=== PATIENT | female | born 1940 | race Caucasian/White ===

== ENCOUNTER 2019-02-13 17:38 | Inpatient (IN) | payer MEDICARE, BC ==
[2019-02-13 21:50] VITALS: BP 127/87
[2019-02-13] MEDS ORDERED: Magnesium Hydroxide (MOM) 30 mL UDC PO PRN (21:59)
[2019-02-14] MEDS: Verapamil HCl SR 120 mg Tab PO SCH ×2 (08:30→09:35)
--- NOTE | 2019-02-14 11:00 | Psychiatric Evaluation ---
DATE OF SERVICE: PSYCHIATRIC INITIAL EVALUATION AND MENTAL STATUS EXAMINATION PATIENT'S AGE: 78. SEX: Female. PHYSICIAN: Said Aspen Sharma M.D., M.P.H.. CHIEF COMPLAINT: "I don't remember." HISTORY OF PRESENT ILLNESS: The patient is a 78-year-old female who was evaluated and transferred from [facility] because of agitation and aggressive behavior towards her . The patient also has been aggressive towards other family members. The patient also has been having difficulty with redirections. Chart reviewed and the patient interviewed and discussed the patient's condition with the staff. The patient is confused and she is unable to answer any of my questions coherently. She also has been restless and getting more agitated with asking her questions as well as almost tearful at times. The patient said that she has been living with her . She cannot remember how many children she had and her answer was "maybe 2 or 3." She also has been disheveled. PAST PSYCHIATRIC HISTORY: The patient has history of dementia. The patient is currently taking Seroquel in a dose of 50 mg at bedtime. PAST MEDICAL HISTORY: The patient has history of hypertension as well as hip pain. The patient also has history of cataract. SOCIAL HISTORY: The patient is and lives with her . The patient denies any alcohol or street drug use or smoking cigarettes. She does not know how many children she has. ALLERGIES: No known allergies. MENTAL STATUS EXAMINATION: The patient appears her stated age. Anxious. Sad affect. In a depressed mood. Easily irritable and agitated. The patient denies any auditory or visual hallucinations, but seems to be paranoid and delusional and actively responding to stimuli. The patient denies any suicidal or homicidal ideations. The patient is alert, but disoriented to time, place, person or situation. Impaired immediate, recent and remote memories. Poor insight and poor judgment. ASSESSMENT: PRIMARY DIAGNOSIS: Psychosis, unspecified. SECONDARY DIAGNOSIS: Dementia, [id number], with psychotic features and behavioral disturbances. TREATMENT PLAN: We will monitor the patient's behavior and condition closely. We will also monitor psychotropic medications. Also, we will increase Seroquel and we will decrease Prozac. Also, try to get more information from family. ESTIMATED LENGTH OF STAY: 5-7 days. PATIENT'S STRENGTHS AND WEAKNESSES: The patient has supportive family. She seems to be in relatively fair health. Weakness is her ineffective coping and poor impulse control and her forgetfulness. AFTER DISCHARGE PLANS: The patient might need placement and outpatient treatment and followup will continue as an outpatient. CRITERIA FOR DISCHARGE: The patient will not be agitated or psychotic and will stabilize psychotropic medications and will establish outpatient treatment plans. [facility]# [id number]
--- NOTE | 2019-02-14 17:27 | History & Physical ---
ADMIT DATE: 02/13/2019 CHIEF COMPLAINT: Transfer from [facility] for agitation and aggressive behavior. HISTORY OF PRESENT ILLNESS: This is a 78-year-old female transferred from [facility] who is medically cleared, who has a 1-day history of aggressive behavior and agitation towards her . PAST MEDICAL HISTORY: Dementia, psychosis. PAST SURGICAL HISTORY: Unknown. ALLERGIES: No known drug allergies. HOME MEDICATIONS: See medication list. REVIEW OF SYSTEMS: GENERAL: Denies any fever or chills. CARDIOVASCULAR: Denies chest pain. RESPIRATORY: Denies shortness of breath. GASTROINTESTINAL: Denies nausea, vomiting, abdominal pain. GENITOURINARY: Denies increased frequency. NEUROLOGIC: No seizures or syncope. All systems reviewed and negative. PHYSICAL EXAMINATION: EXTREMITIES: The patient is well-developed, well-nourished, no apparent distress. VITAL SIGNS: Temperature 97.6, heart rate 55, blood pressure 140/77, respirations 20, O2 96%. HEENT: Head; normocephalic, atraumatic. NECK: Supple. No mass. LUNGS: Clear bilaterally. HEART: Regular rate and rhythm. ABDOMEN: Soft, nontender. ASSESSMENT: Agitation, aggressive behavior, dementia. PLAN: We will continue the patient's home medications. Fall precautions will be initiated. We will check the patient's hemoglobin A1c and lipid profile. We will continue to monitor this patient. [facility]# [id number]
--- NOTE | 2019-02-15 07:38 | Progress Notes ---
DATE: SUBJECTIVE: Chart reviewed and the patient interviewed. Also discussed the patient's condition with the staff and reviewed records and labs. The patient is still confused. The patient also is still unable to carry on coherent conversation and she has disorganized thoughts. She also was "wandering around the unit and when I asked her about what she is doing, looking for my and I will wait for him here." She is still very confused and forgetful, but easy to redirect her, but she needs constant redirections. Gait is steady and vital signs are stable. Labs were within normal. ASSESSMENT: The patient is still confused and needs constant redirections. TREATMENT PLAN: We will monitor the patient's behavior and condition closely. Also, we will continue to work on her confusion and also continue to adjust psychotropic medications. Seroquel started yesterday in a dose of 25 mg 3 times a day with no side effects. We will continue same dose and we will continue to follow up. JOB# [id number]
[2019-02-15] MEDS: Verapamil HCl SR 120 mg Tab PO SCH (08:12)
--- NOTE | 2019-02-15 15:57 | Internal Medicine Prog Note ---
Internal Medicine Subjective - Subjective Service Date: 02/15/19 Patient seen and examined:: with staff Patient is:: awake, verbal, confused Patient Complaints of:: other (Patient is forgetful.) Per staff patient has:: no adverse event, no episodes of fall Internal Medicine Objective - Physical Exam Vitals and I&O: Vital Signs Temp 98.0 F 02/15/19 04:50 Pulse 90 02/15/19 08:12 Resp 18 02/15/19 04:50 BP 108/68 02/15/19 08:12 Pulse Ox 96 02/15/19 04:50 Intake & Output 02/14/19 02/15/19 02/15/19 18:59 06:59 18:59 Intake Total 800 480 Balance 800 480 Intake: Oral 800 480 Other: # Voids 2 # Bowel Movements 1 Active Medications: Current Medications Acetaminophen (Tylenol) 650 mg PO Q4HR PRN PRN Reason: Mild Pain / Temp above 100 Stop: 04/14/19 21:58 Fluoxetine HCl (Prozac) 20 mg PO DAILY [facility]; Protocol Stop: 04/15/19 08:59 Last Admin: 02/15/19 08:11 Dose: 20 mg Lorazepam (Ativan) 0.5 mg PO Q4HR PRN; Protocol PRN Reason: Agitation Stop: 03/15/19 21:58 Last Admin: 02/15/19 13:30 Dose: 0.5 mg Magnesium Hydroxide (Milk Of Magnesia) 30 ml PO HS PRN PRN Reason: Constipation Memantine (Namenda) 10 mg PO BID [facility] Stop: 04/15/19 08:59 Last Admin: 02/15/19 08:11 Dose: 10 mg Quetiapine Fumarate (Seroquel) 25 mg PO TID [facility]; Protocol Stop: 04/15/19 08:59 Last Admin: 02/15/19 13:30 Dose: 25 mg Verapamil HCl (Calan Sr) 240 mg PO DAILY [facility] Stop: 04/15/19 08:59 Last Admin: 02/15/19 08:12 Dose: 240 mg Zolpidem Tartrate (Ambien) 5 mg PO HS PRN PRN Reason: Insomnia Stop: 04/14/19 21:58 Last Admin: 02/14/19 20:37 Dose: 5 mg Physical Exam: Patient has disorganized thoughts, very confused, increased memory loss. General: demented HEENT: NC/AT, PERRLA Neck: Supple Lungs: CTAB Cardiovascular: RRR, Normal S1 Abdomen: soft, non-tender Extremities: clear Neurological: no change Internal Medicine Assmt/Plan - Assessment Assessment: Agitation. Aggressive behavior. History of Psychosis. History of Dementia. - Plan Plan: Continuation of care. Monitor Vitals and Labs. Continue present meds as directed. Monitor Diet/Nutritional support. Safety precaution. Supportive care. Continue collaborating with consulting specialists, case management and nursing team. Will Monitor patient and continue present care management. Nutritional Asmnt/Malnutr-PDOC - Dietary Evaluation Malnutrition Findings (Please click <Entered> for more info): see orders.
[2019-02-16] MEDS: Verapamil HCl SR 120 mg Tab PO SCH (08:46)
--- NOTE | 2019-02-16 10:25 | Progress Notes ---
DATE: SUBJECTIVE: Chart reviewed and the patient interviewed. Also discussed the patient's condition with the staff and reviewed records and labs. The patient continued to be confused and she is still actively hallucinating and actively responding to stimuli. The patient is trying to grasp objects from the area that was not visible and she seems to be having visual hallucinations. The patient also is still restless and pacing up and down the unit in a confused state. She also is still looking around the room for objects that is not there. On the other hand, it seems that the patient's appetite is slightly improved. ASSESSMENT: The patient is still confused and is still hallucinating and needs close monitoring. TREATMENT PLAN: We will continue to monitor her condition closely. Also, the patient continues to take Seroquel in a dose of 25 mg 3 times a day. We will continue same dose and we will continue working on her confusion and follow up closely. [facility]# [id number]
--- NOTE | 2019-02-16 16:23 | Internal Medicine Prog Note ---
Internal Medicine Subjective - Subjective Service Date: 02/16/19 Patient is:: awake, verbal, confused Patient Complaints of:: other (Patient is forgetful.) Per staff patient has:: no adverse event, no episodes of fall Internal Medicine Objective - Physical Exam Vitals and I&O: Vital Signs Temp 97.3 F 02/16/19 06:36 Pulse 102 02/16/19 08:46 Resp 20 02/16/19 06:36 BP 113/64 02/16/19 08:46 Pulse Ox 97 02/16/19 06:36 Intake & Output 02/15/19 02/16/19 02/16/19 18:59 06:59 18:59 Intake Total 900 120 Balance 900 120 Intake: Oral 900 120 Other: # Voids 3 2 # Bowel Movements 1 Active Medications: Current Medications Acetaminophen (Tylenol) 650 mg PO Q4HR PRN PRN Reason: Mild Pain / Temp above 100 Stop: 04/14/19 21:58 Fluoxetine HCl (Prozac) 20 mg PO DAILY [facility]; Protocol Stop: 04/15/19 08:59 Last Admin: 02/16/19 08:43 Dose: 20 mg Lorazepam (Ativan) 0.5 mg PO Q4HR PRN; Protocol PRN Reason: Agitation Stop: 03/15/19 21:58 Last Admin: 02/15/19 16:24 Dose: 0.5 mg Magnesium Hydroxide (Milk Of Magnesia) 30 ml PO HS PRN PRN Reason: Constipation Memantine (Namenda) 10 mg PO BID [facility] Stop: 04/15/19 08:59 Last Admin: 02/16/19 08:43 Dose: 10 mg Quetiapine Fumarate (Seroquel) 25 mg PO TID [facility]; Protocol Stop: 04/15/19 08:59 Last Admin: 02/16/19 13:35 Dose: 25 mg Verapamil HCl (Calan Sr) 240 mg PO DAILY [facility] Stop: 04/15/19 08:59 Last Admin: 02/16/19 08:46 Dose: 240 mg Zolpidem Tartrate (Ambien) 5 mg PO HS PRN PRN Reason: Insomnia Stop: 04/14/19 21:58 Last Admin: 02/14/19 20:37 Dose: 5 mg General: demented HEENT: NC/AT, PERRLA Neck: Supple Lungs: CTAB Cardiovascular: RRR, Normal S1 Abdomen: soft, non-tender Extremities: clear Neurological: no change Internal Medicine Assmt/Plan - Assessment Assessment: Agitation. Aggressive behavior. History of Psychosis. History of Dementia. - Plan Plan: Continuation of care. Monitor Vitals and Labs. Continue present meds as directed. Monitor Diet/Nutritional support. Safety precaution. Supportive care. Continue collaborating with consulting specialists, case management and nursing team. Will Monitor patient and continue present care management.
[2019-02-17] MEDS: Verapamil HCl SR 120 mg Tab PO SCH (09:12)
--- NOTE | 2019-02-17 14:15 | Internal Medicine Prog Note ---
Internal Medicine Subjective - Subjective Service Date: 02/17/19 Patient seen and examined:: with staff Patient is:: awake, verbal, confused Patient Complaints of:: other (Patient is forgetful.) Per staff patient has:: no adverse event, no episodes of fall Internal Medicine Objective - Physical Exam Vitals and I&O: Vital Signs Temp 97.9 F 02/17/19 06:50 Pulse 98 02/17/19 06:50 Resp 18 02/17/19 06:50 BP 103/68 02/17/19 06:50 Pulse Ox 97 02/17/19 06:50 Intake & Output 02/16/19 02/17/19 02/17/19 18:59 06:59 18:59 Intake Total 240 Balance 240 Intake: Oral 240 Other: # Voids 1 Active Medications: Current Medications Acetaminophen (Tylenol) 650 mg PO Q4HR PRN PRN Reason: Mild Pain / Temp above 100 Stop: 04/14/19 21:58 Fluoxetine HCl (Prozac) 10 mg PO DAILY [facility]; Protocol Stop: 04/18/19 08:59 Last Admin: 02/17/19 10:14 Dose: 10 mg Lorazepam (Ativan) 0.5 mg PO Q4HR PRN; Protocol PRN Reason: Agitation Stop: 03/15/19 21:58 Last Admin: 02/15/19 16:24 Dose: 0.5 mg Magnesium Hydroxide (Milk Of Magnesia) 30 ml PO HS PRN PRN Reason: Constipation Memantine (Namenda) 10 mg PO BID [facility] Stop: 04/15/19 08:59 Last Admin: 02/17/19 09:14 Dose: 10 mg Quetiapine Fumarate (Seroquel) 25 mg PO TID [facility]; Protocol Stop: 04/15/19 08:59 Last Admin: 02/17/19 09:12 Dose: 25 mg Verapamil HCl (Calan Sr) 240 mg PO DAILY [facility] Stop: 04/15/19 08:59 Last Admin: 02/17/19 09:12 Dose: Not Given Zolpidem Tartrate (Ambien) 5 mg PO HS PRN PRN Reason: Insomnia Stop: 04/14/19 21:58 Last Admin: 02/14/19 20:37 Dose: 5 mg Physical Exam: Patient is easily agitated, remains very confused. General: demented HEENT: NC/AT, PERRLA Neck: Supple Lungs: CTAB Cardiovascular: RRR, Normal S1 Abdomen: soft, non-tender Extremities: clear Neurological: no change Internal Medicine Assmt/Plan - Assessment Assessment: Agitation. Aggressive behavior. History of Psychosis. History of Dementia. - Plan Plan: Continuation of care. Monitor Vitals and Labs. Continue present meds as directed. Monitor Diet/Nutritional support. Safety precaution. Supportive care. Continue collaborating with consulting specialists, case management and nursing team. Will Monitor patient and continue present care management. Nutritional Asmnt/Malnutr-PDOC - Dietary Evaluation Malnutrition Findings (Please click <Entered> for more info): Patient is awake, easily agitated and irritable.
--- NOTE | 2019-02-18 01:07 | Progress Notes ---
DATE: 02/17/2019 SUBJECTIVE: Chart reviewed and the patient interviewed. Also, discussed the patient's condition with the staff and reviewed the records and labs. The patient is still confused and she is still in an irritable mood. The patient needs close monitoring because the patient is still wandering around, and yesterday the patient was going to her roommate's bed thinking that her is in the bed. Difficulty redirecting her, but she is still able to follow directions. The patient also still have mood swings and have periods of irritability. ASSESSMENT: The patient is still confused and forgetful and needs lots of redirections. TREATMENT PLAN: Continue Seroquel 25 mg 3 times a day. Also, we will decrease Prozac to 10 mg every day. Also, continue Namenda 10 mg twice a day. We will continue working on her confusion and behavioral modification and continue to follow up. JOB# [id number]
[2019-02-18] MEDS: Verapamil HCl SR 120 mg Tab PO SCH (09:30)
--- NOTE | 2019-02-18 11:42 | Internal Medicine Prog Note ---
Internal Medicine Subjective - Subjective Service Date: 02/18/19 Patient seen and examined:: with staff Patient is:: awake, verbal, confused Patient Complaints of:: other (Patient is forgetful.) Per staff patient has:: no adverse event, no episodes of fall Internal Medicine Objective - Physical Exam Vitals and I&O: Vital Signs Temp 96.4 F 02/18/19 07:18 Pulse 88 02/18/19 09:30 Resp 20 02/18/19 07:18 BP 133/66 02/18/19 09:30 Pulse Ox 97 02/18/19 07:18 Intake & Output 02/17/19 02/18/19 02/18/19 18:59 06:59 18:59 Intake Total 960 1200 Balance 960 1200 Intake: Oral 960 1200 Other: # Voids 4 2 # Bowel Movements 1 Active Medications: Current Medications Acetaminophen (Tylenol) 650 mg PO Q4HR PRN PRN Reason: Mild Pain / Temp above 100 Stop: 04/14/19 21:58 Fluoxetine HCl (Prozac) 10 mg PO DAILY [facility]; Protocol Stop: 04/18/19 08:59 Last Admin: 02/18/19 09:31 Dose: 10 mg Lorazepam (Ativan) 0.5 mg PO Q4HR PRN; Protocol PRN Reason: Agitation Stop: 03/15/19 21:58 Last Admin: 02/15/19 16:24 Dose: 0.5 mg Magnesium Hydroxide (Milk Of Magnesia) 30 ml PO HS PRN PRN Reason: Constipation Memantine (Namenda) 10 mg PO BID [facility] Stop: 04/15/19 08:59 Last Admin: 02/18/19 09:31 Dose: 10 mg Quetiapine Fumarate (Seroquel) 25 mg PO TID [facility]; Protocol Stop: 04/15/19 08:59 Last Admin: 02/18/19 09:31 Dose: 25 mg Verapamil HCl (Calan Sr) 240 mg PO DAILY [facility] Stop: 04/15/19 08:59 Last Admin: 02/18/19 09:30 Dose: 240 mg Zolpidem Tartrate (Ambien) 5 mg PO HS PRN PRN Reason: Insomnia Stop: 04/14/19 21:58 Last Admin: 02/17/19 20:28 Dose: 5 mg Physical Exam: Patient is still having mood swings, easily agitated, forgetful and dis- oriented. General: demented HEENT: NC/AT, PERRLA Neck: Supple Lungs: CTAB Cardiovascular: RRR, Normal S1 Abdomen: soft, non-tender Extremities: clear Neurological: no change Internal Medicine Assmt/Plan - Assessment Assessment: Agitation. Aggressive behavior. History of Psychosis. History of Dementia. - Plan Plan: Continuation of care. Monitor Vitals and Labs. Continue present meds as directed. Monitor Diet/Nutritional support. Safety precaution. Supportive care. Continue collaborating with consulting specialists, case management and nursing team. Will Monitor patient and continue present care management. Nutritional Asmnt/Malnutr-PDOC - Dietary Evaluation Malnutrition Findings (Please click <Entered> for more info): Nutritional Asmnt/Malnutrition Start: 02/17/19 15: 36 Text: Status: Complete Freq: Protocol: Document 02/17/19 15:36 CELESTINO (Rec: 02/17/19 15:39 CELESTINO [id number]) Nutritional Asmnt/Malnutrition Patient General Information Nutritional Screening Moderate Risk Diagnosis Alzheimers disease Pertinent Medical Hx/Surgical Hx Dementia, Psychosis Subjective Information Pt is a 78-year-old female admitted on 02/13 c/o agitation and aggressive behavior. Per Meal/Nutrition Activity Record , Pt PO intake 50-75-75% meals on 02/15. Per CHRISTIE Mark, Pt ate 50-75% breakfast and lunch today. HT: 58 WT: 122 LB (55.45 kg) BMI: 18.55 (Normal) GI: WNL, Soft, Flat, Non- Tender BM: 02/16 x1 I/O: 240/Not Noted Skin: WNL, Intact Kalen: 21 Diet Order: NA2GM Estimated Energy Needs: ( Geriatric, CBW) 6092-3144 kcals (25-30 kcals/ kg) 55-66g Pro (1.0-1.2 g/kg) 9138-8584 ml (25-30 ml/kg) Pt is eating 65% of meals ( average) Per Meal/Nutrition Activity Record. Dietary is currently providing an estimated 2476 kcals and 110 gm Pro, per Pt PO intake this is providing an estimated 1609 kcals and 71gm Pro to meet 100% kcal and 100% Pro needs- adequate. Current Diet Order/ Nutrition Support NA2GM Pertinent Medications MOM (PRN) Pertinent Labs No Pertinent labs noted Nutritional Hx/Data Height 1.73 m Height (Calculated Centimeters) 172.7 Current Weight (lbs) 55.338 kg Weight (Calculated Kilograms) 55.3 Weight (Calculated Grams) 00504.3 Atkins Body Weight 63.9 kg % Atkins Body Weight 87 Body Mass Index (BMI) 18.5 Weight Status Approriate GI Symptoms GI Symptoms None Last BM 02/16 x1 Skin Integrity/Comment: Skin: WNL, Intact Kalen: 21 Current %PO Fair (50-74%) Estimated Nutritional Goals BEE in Kcals: Using Current wt Calories/Kcals/Kg 25-30 Kcals Calculated 5175-3185 Protein: Using Current wt Protein g/k.0-1.2 Protein Calculated 55-66 Fluid: ml 3976-9979 ml (25-30 ml/kg) Nutritional Problem No current Nutrition Prob Problem No nutrition diagnosis at this time. Etiology N/A Signs/Symptoms: N/A Malnutrition Related to Morbid Obesity Malnutrition related to morbid obesity No Intervention/Recommendation Comments 1.Continue with NA2GM diet as ordered. Expected Outcomes/Goals Expected Outcomes/Goals 1.PO intake to continue to meet >75% of nutritional needs . 2.Monitor PO intake, wt, nutrition related labs, and skin integrity. 3.F/U as low risk in 7-10 days , 02/24-02/27
--- NOTE | 2019-02-18 23:50 | Progress Notes ---
DATE: SUBJECTIVE: Chart reviewed and the patient interviewed. Also discussed the patient's condition with the staff and reviewed records and labs. The patient is still confused. The patient thinks that she is in her house and she thinks that the hospital is her house. The patient also is scared of her roommate and afraid to be close to her roommate. On the other hand, the patient is compliant with taking her medications and the patient denies any side effects of medications. She also continued to look for her around the unit. Otherwise, no side effects of medications. ASSESSMENT: The patient is still confused and needs lots of redirections. TREATMENT PLAN: Continue to monitor her behavior and condition closely. Also, continue Seroquel 25 mg 3 times a day, Namenda 10 mg twice a day, and Prozac 10 mg every day. Also, continue to work on discharge plans and possible placement issue. JOB# [id number]
[2019-02-19] MEDS: Verapamil HCl SR 120 mg Tab PO SCH ×2 (08:50→09:02)
--- NOTE | 2019-02-19 16:16 | Internal Medicine Prog Note ---
Internal Medicine Subjective - Subjective Service Date: 02/19/19 Patient seen and examined:: with staff, chart reviewed Patient is:: awake, verbal, confused Patient Complaints of:: other (Patient is forgetful.) Per staff patient has:: no adverse event, no episodes of fall Internal Medicine Objective - Physical Exam Vitals and I&O: Vital Signs Temp 98 F 02/19/19 13:59 Pulse 83 02/19/19 13:59 Resp 20 02/19/19 13:59 BP 125/92 02/19/19 13:59 Pulse Ox 96 02/19/19 13:59 Intake & Output 02/18/19 02/19/19 02/19/19 18:59 06:59 18:59 Intake Total 1200 180 120 Balance 1200 180 120 Intake: Oral 1200 180 120 Other: # Voids 2 3 # Bowel Movements 0 Active Medications: Current Medications Acetaminophen (Tylenol) 650 mg PO Q4HR PRN PRN Reason: Mild Pain / Temp above 100 Stop: 04/14/19 21:58 Fluoxetine HCl (Prozac) 10 mg PO DAILY [facility]; Protocol Stop: 04/18/19 08:59 Last Admin: 02/19/19 09:01 Dose: 10 mg Lorazepam (Ativan) 0.5 mg PO Q4HR PRN; Protocol PRN Reason: Agitation Stop: 03/15/19 21:58 Last Admin: 02/15/19 16:24 Dose: 0.5 mg Magnesium Hydroxide (Milk Of Magnesia) 30 ml PO HS PRN PRN Reason: Constipation Memantine (Namenda) 10 mg PO BID [facility] Stop: 04/15/19 08:59 Last Admin: 02/19/19 09:01 Dose: 10 mg Quetiapine Fumarate (Seroquel) 25 mg PO TID [facility]; Protocol Stop: 04/15/19 08:59 Last Admin: 02/19/19 14:56 Dose: 25 mg Verapamil HCl (Calan Sr) 240 mg PO DAILY [facility] Stop: 04/15/19 08:59 Last Admin: 02/19/19 09:02 Dose: Not Given Zolpidem Tartrate (Ambien) 5 mg PO HS PRN PRN Reason: Insomnia Stop: 04/14/19 21:58 Last Admin: 02/18/19 20:46 Dose: 5 mg Physical Exam: Patient is still confused, withdrawn, paranoid regarding room mate, needs monitoring. General: demented HEENT: NC/AT, PERRLA Neck: Supple Lungs: CTAB Cardiovascular: RRR, Normal S1 Abdomen: soft, non-tender Extremities: clear Neurological: no change Internal Medicine Assmt/Plan - Assessment Assessment: Agitation. Aggressive behavior. History of Psychosis. History of Dementia. Paranoid. - Plan Plan: Continuation of care. Monitor Vitals and Labs. Continue present meds as directed. Monitor Diet/Nutritional support. Safety precaution. Supportive care. Continue collaborating with consulting specialists, case management and nursing team. Will Monitor patient and continue present care management. Nutritional Asmnt/Malnutr-PDOC - Dietary Evaluation Malnutrition Findings (Please click <Entered> for more info): Nutritional Asmnt/Malnutrition Start: 02/17/19 15: 36 Text: Status: Complete Freq: Protocol: Document 02/17/19 15:36 CELESTINO (Rec: 02/17/19 15:39 CELESTINO [email or web address]) Nutritional Asmnt/Malnutrition Patient General Information Nutritional Screening Moderate Risk Diagnosis Alzheimers disease Pertinent Medical Hx/Surgical Hx Dementia, Psychosis Subjective Information Pt is a 78-year-old female admitted on 02/13 c/o agitation and aggressive behavior. Per Meal/Nutrition Activity Record , Pt PO intake 50-75-75% meals on 02/15. Per CHRISTIE Mark, Pt ate 50-75% breakfast and lunch today. HT: 58 WT: 122 LB (55.45 kg) BMI: 18.55 (Normal) GI: WNL, Soft, Flat, Non- Tender BM: 02/16 x1 I/O: 240/Not Noted Skin: WNL, Intact Kalen: 21 Diet Order: NA2GM Estimated Energy Needs: ( Geriatric, CBW) 0351-7049 kcals (25-30 kcals/ kg) 55-66g Pro (1.0-1.2 g/kg) 4082-0237 ml (25-30 ml/kg) Pt is eating 65% of meals ( average) Per Meal/Nutrition Activity Record. Dietary is currently providing an estimated 2476 kcals and 110 gm Pro, per Pt PO intake this is providing an estimated 1609 kcals and 71gm Pro to meet 100% kcal and 100% Pro needs- adequate. Current Diet Order/ Nutrition Support NA2GM Pertinent Medications MOM (PRN) Pertinent Labs No Pertinent labs noted Nutritional Hx/Data Height 1.73 m Height (Calculated Centimeters) 172.7 Current Weight (lbs) 55.338 kg Weight (Calculated Kilograms) 55.3 Weight (Calculated Grams) 81145.3 [place] Body Weight 63.9 kg % [place] Body Weight 87 Body Mass Index (BMI) 18.5 Weight Status Approriate GI Symptoms GI Symptoms None Last BM 02/16 x1 Skin Integrity/Comment: Skin: WNL, Intact Kalen: 21 Current %PO Fair (50-74%) Estimated Nutritional Goals BEE in Kcals: Using Current wt Calories/Kcals/Kg 25-30 Kcals Calculated 9086-3787 Protein: Using Current wt Protein g/k.0-1.2 Protein Calculated 55-66 Fluid: ml 8962-3109 ml (25-30 ml/kg) Nutritional Problem No current Nutrition Prob Problem No nutrition diagnosis at this time. Etiology N/A Signs/Symptoms: N/A Malnutrition Related to Morbid Obesity Malnutrition related to morbid obesity No Intervention/Recommendation Comments 1.Continue with NA2GM diet as ordered. Expected Outcomes/Goals Expected Outcomes/Goals 1.PO intake to continue to meet >75% of nutritional needs . 2.Monitor PO intake, wt, nutrition related labs, and skin integrity. 3.F/U as low risk in 7-10 days , 02/24-02/27
--- NOTE | 2019-02-20 02:32 | Progress Notes ---
DATE: SUBJECTIVE: Chart reviewed and the patient interviewed. Also discussed the patient's condition with the staff and reviewed records and labs. The patient continues to be confused. The patient also is still going around the unit thinking that she is in her house and looking for her . The patient also still needs lots of redirections and she is still forgetful and keeps asking questions over and over. Also, the patient needs prompt instructions with her hygiene. Otherwise, the patient is compliant with taking Seroquel and the Prozac and Namenda with no side effects. ASSESSMENT: The patient is still confused and needs close monitoring. TREATMENT PLAN: Continue to monitor her behavior and her condition closely. Also, continue to work on her confusion and adjusting psychotropic medications and continue to follow up. JOB# [id number]
[2019-02-20] MEDS: Verapamil HCl SR 120 mg Tab PO SCH (09:01)
--- NOTE | 2019-02-20 10:29 | Internal Medicine Prog Note ---
Internal Medicine Subjective - Subjective Service Date: 02/20/19 Patient seen and examined:: with staff Patient is:: awake, verbal, confused Patient Complaints of:: other (Patient is forgetful.) Per staff patient has:: no adverse event, no episodes of fall Internal Medicine Objective - Physical Exam Vitals and I&O: Vital Signs Temp 97.4 F 02/20/19 06:51 Pulse 78 02/20/19 06:51 Resp 19 02/20/19 06:51 BP 97/75 02/20/19 06:51 Pulse Ox 97 02/20/19 06:51 Intake & Output 02/19/19 02/20/19 02/20/19 18:59 06:59 18:59 Intake Total 120 180 Balance 120 180 Intake: Oral 120 180 Other: # Voids 2 3 # Bowel Movements 0 Active Medications: Current Medications Acetaminophen (Tylenol) 650 mg PO Q4HR PRN PRN Reason: Mild Pain / Temp above 100 Stop: 04/14/19 21:58 Fluoxetine HCl (Prozac) 10 mg PO DAILY [facility]; Protocol Stop: 04/18/19 08:59 Last Admin: 02/20/19 09:00 Dose: 10 mg Lorazepam (Ativan) 0.5 mg PO Q4HR PRN; Protocol PRN Reason: Agitation Stop: 03/15/19 21:58 Last Admin: 02/15/19 16:24 Dose: 0.5 mg Magnesium Hydroxide (Milk Of Magnesia) 30 ml PO HS PRN PRN Reason: Constipation Memantine (Namenda) 10 mg PO BID [facility] Stop: 04/15/19 08:59 Last Admin: 02/20/19 09:00 Dose: 10 mg Quetiapine Fumarate (Seroquel) 25 mg PO TID [facility]; Protocol Stop: 04/15/19 08:59 Last Admin: 02/20/19 09:00 Dose: 25 mg Verapamil HCl (Calan Sr) 240 mg PO DAILY [facility] Stop: 04/15/19 08:59 Last Admin: 02/20/19 09:01 Dose: Not Given Zolpidem Tartrate (Ambien) 5 mg PO HS PRN PRN Reason: Insomnia Stop: 04/14/19 21:58 Last Admin: 02/19/19 20:35 Dose: 5 mg Physical Exam: Patient is still very confused, withdrawn, still paranoid regarding room mate, needs monitoring. General: demented HEENT: NC/AT, PERRLA Neck: Supple Lungs: CTAB Cardiovascular: RRR, Normal S1 Abdomen: soft, non-tender Extremities: clear Neurological: no change Internal Medicine Assmt/Plan - Assessment Assessment: Agitation. Aggressive behavior. History of Psychosis. History of Dementia. Paranoid. - Plan Plan: Continuation of care. Monitor Vitals and Labs. Continue present meds as directed. Monitor Diet/Nutritional support. Safety precaution. Supportive care. Continue collaborating with consulting specialists, case management and nursing team. Will Monitor patient and continue present care management. Nutritional Asmnt/Malnutr-PDOC - Dietary Evaluation Malnutrition Findings (Please click <Entered> for more info): Nutritional Asmnt/Malnutrition Start: 02/17/19 15: 36 Text: Status: Complete Freq: Protocol: Document 02/17/19 15:36 CELESTINO (Rec: 02/17/19 15:39 CELESTINO [email or web address]) Nutritional Asmnt/Malnutrition Patient General Information Nutritional Screening Moderate Risk Diagnosis Alzheimers disease Pertinent Medical Hx/Surgical Hx Dementia, Psychosis Subjective Information Pt is a 78-year-old female admitted on 02/13 c/o agitation and aggressive behavior. Per Meal/Nutrition Activity Record , Pt PO intake 50-75-75% meals on 02/15. Per CHRISTIE Mark, Pt ate 50-75% breakfast and lunch today. HT: 58 WT: 122 LB (55.45 kg) BMI: 18.55 (Normal) GI: WNL, Soft, Flat, Non- Tender BM: 02/16 x1 I/O: 240/Not Noted Skin: WNL, Intact Kalen: 21 Diet Order: NA2GM Estimated Energy Needs: ( Geriatric, CBW) 2906-9108 kcals (25-30 kcals/ kg) 55-66g Pro (1.0-1.2 g/kg) 0864-8427 ml (25-30 ml/kg) Pt is eating 65% of meals ( average) Per Meal/Nutrition Activity Record. Dietary is currently providing an estimated 2476 kcals and 110 gm Pro, per Pt PO intake this is providing an estimated 1609 kcals and 71gm Pro to meet 100% kcal and 100% Pro needs- adequate. Current Diet Order/ Nutrition Support NA2GM Pertinent Medications MOM (PRN) Pertinent Labs No Pertinent labs noted Nutritional Hx/Data Height 1.73 m Height (Calculated Centimeters) 172.7 Current Weight (lbs) 55.338 kg Weight (Calculated Kilograms) 55.3 Weight (Calculated Grams) 27134.3 [place] Body Weight 63.9 kg % [place] Body Weight 87 Body Mass Index (BMI) 18.5 Weight Status Approriate GI Symptoms GI Symptoms None Last BM 02/16 x1 Skin Integrity/Comment: Skin: WNL, Intact Kalen: 21 Current %PO Fair (50-74%) Estimated Nutritional Goals BEE in Kcals: Using Current wt Calories/Kcals/Kg 25-30 Kcals Calculated 5825-1238 Protein: Using Current wt Protein g/k.0-1.2 Protein Calculated 55-66 Fluid: ml 0607-6007 ml (25-30 ml/kg) Nutritional Problem No current Nutrition Prob Problem No nutrition diagnosis at this time. Etiology N/A Signs/Symptoms: N/A Malnutrition Related to Morbid Obesity Malnutrition related to morbid obesity No Intervention/Recommendation Comments 1.Continue with NA2GM diet as ordered. Expected Outcomes/Goals Expected Outcomes/Goals 1.PO intake to continue to meet >75% of nutritional needs . 2.Monitor PO intake, wt, nutrition related labs, and skin integrity. 3.F/U as low risk in 7-10 days , 02/24-02/27
--- NOTE | 2019-02-20 19:04 | Progress Notes ---
DATE: SUBJECTIVE: Chart reviewed and the patient interviewed. Also discussed the patient's condition with the staff and reviewed records and labs. The patient continued to be confused and forgetful and the patient also is still easily agitated. The patient also still wandering around the unit looking for her and she thinks that she is living at her home. She also still needs lots of redirections. On the other hand, the patient less agitated and less irritable and interacting more. ASSESSMENT: The patient is still confused and needs close monitoring. TREATMENT PLAN: We will continue monitoring behavior and condition closely. Also, continue Seroquel, Prozac and the Namenda same dose. Also, continue to work on her ineffective coping as well as discharge plans. JOB# [id number]
[2019-02-21] MEDS: Verapamil HCl SR 120 mg Tab PO SCH (08:44)
--- NOTE | 2019-02-21 11:39 | Progress Notes ---
DATE: 02/21/2019 SUBJECTIVE: Chart reviewed and the patient interviewed. Also discussed the patient's condition with the staff and reviewed records and labs. The patient continued to be severely confused and restless. The patient also is pacing up and down the unit and entering other patient's rooms in a confused state. The patient also has difficulty with her mood and is getting agitated when staff tried to help her with her ADLs or tried to redirect her. She also is suspicious and is getting agitated easily. ASSESSMENT: The patient is confused and agitated. TREATMENT PLAN: We will continue to monitor her behavior and her condition closely. Also, we will increase Seroquel to 37.5 mg twice a day and 50 mg at bedtime and we will continue to follow up her behavior and her condition closely. [facility]# [id number]
--- NOTE | 2019-02-21 16:03 | Internal Medicine Prog Note ---
Internal Medicine Subjective - Subjective Service Date: 02/21/19 Patient is:: awake, verbal, confused Patient Complaints of:: other (Patient is forgetful.) Per staff patient has:: no adverse event, no episodes of fall Internal Medicine Objective - Physical Exam Vitals and I&O: Vital Signs Temp 98.5 F 02/21/19 06:20 Pulse 88 02/21/19 08:44 Resp 20 02/21/19 06:20 BP 137/89 02/21/19 08:44 Pulse Ox 97 02/21/19 06:20 Intake & Output 02/20/19 02/21/19 02/21/19 18:59 06:59 18:59 Intake Total 950 120 Balance 950 120 Intake: Oral 950 120 Other: # Voids 3 2 # Bowel Movements 1 0 Active Medications: Current Medications Acetaminophen (Tylenol) 650 mg PO Q4HR PRN PRN Reason: Mild Pain / Temp above 100 Stop: 04/14/19 21:58 Fluoxetine HCl (Prozac) 10 mg PO DAILY [facility]; Protocol Stop: 04/18/19 08:59 Last Admin: 02/21/19 08:43 Dose: 10 mg Lorazepam (Ativan) 0.5 mg PO Q4HR PRN; Protocol PRN Reason: Agitation Stop: 03/15/19 21:58 Last Admin: 02/21/19 08:43 Dose: 0.5 mg Magnesium Hydroxide (Milk Of Magnesia) 30 ml PO HS PRN PRN Reason: Constipation Memantine (Namenda) 10 mg PO BID [facility] Stop: 04/15/19 08:59 Last Admin: 02/21/19 08:43 Dose: 10 mg Quetiapine Fumarate (Seroquel) 37.5 mg PO BID [facility]; Protocol Stop: 04/22/19 08:59 Last Admin: 02/21/19 09:58 Dose: Not Given Quetiapine Fumarate (Seroquel) 50 mg PO HS [facility]; Protocol Stop: 04/22/19 20:59 Verapamil HCl (Calan Sr) 240 mg PO DAILY [facility] Stop: 04/15/19 08:59 Last Admin: 02/21/19 08:44 Dose: 240 mg Zolpidem Tartrate (Ambien) 5 mg PO HS PRN PRN Reason: Insomnia Stop: 04/14/19 21:58 Last Admin: 02/20/19 20:19 Dose: 5 mg General: demented HEENT: NC/AT, PERRLA Neck: Supple Lungs: CTAB Cardiovascular: RRR, Normal S1 Abdomen: soft, non-tender Extremities: clear Neurological: no change Internal Medicine Assmt/Plan - Assessment Assessment: Agitation. Aggressive behavior. History of Psychosis. History of Dementia. - Plan Plan: Continuation of care. Monitor Vitals and Labs. Continue present meds as directed. Monitor Diet/Nutritional support. Safety precaution. Supportive care. Continue collaborating with consulting specialists, case management and nursing team. Will Monitor patient and continue present care management. Nutritional Asmnt/Malnutr-PDOC - Dietary Evaluation Malnutrition Findings (Please click <Entered> for more info): Nutritional Asmnt/Malnutrition Start: 02/17/19 15: 36 Text: Status: Complete Freq: Protocol: Document 02/17/19 15:36 CELESTINO (Rec: 02/17/19 15:39 CELESTINO [email or web address]) Nutritional Asmnt/Malnutrition Patient General Information Nutritional Screening Moderate Risk Diagnosis Alzheimers disease Pertinent Medical Hx/Surgical Hx Dementia, Psychosis Subjective Information Pt is a 78-year-old female admitted on 02/13 c/o agitation and aggressive behavior. Per Meal/Nutrition Activity Record , Pt PO intake 50-75-75% meals on 02/15. Per CHRISTIE Mark, Pt ate 50-75% breakfast and lunch today. HT: 58 WT: 122 LB (55.45 kg) BMI: 18.55 (Normal) GI: WNL, Soft, Flat, Non- Tender BM: 02/16 x1 I/O: 240/Not Noted Skin: WNL, Intact Kalen: 21 Diet Order: NA2GM Estimated Energy Needs: ( Geriatric, CBW) 1792-4994 kcals (25-30 kcals/ kg) 55-66g Pro (1.0-1.2 g/kg) 9446-3819 ml (25-30 ml/kg) Pt is eating 65% of meals ( average) Per Meal/Nutrition Activity Record. Dietary is currently providing an estimated 2476 kcals and 110 gm Pro, per Pt PO intake this is providing an estimated 1609 kcals and 71gm Pro to meet 100% kcal and 100% Pro needs- adequate. Current Diet Order/ Nutrition Support NA2GM Pertinent Medications MOM (PRN) Pertinent Labs No Pertinent labs noted Nutritional Hx/Data Height 5 ft 8 in Height (Calculated Centimeters) 172.7 Current Weight (lbs) 122 lb Weight (Calculated Kilograms) 55.3 Weight (Calculated Grams) 31234.3 [place] Body Weight 63.9 kg % [place] Body Weight 87 Body Mass Index (BMI) 18.5 Weight Status Approriate GI Symptoms GI Symptoms None Last BM 02/16 x1 Skin Integrity/Comment: Skin: WNL, Intact Kalen: 21 Current %PO Fair (50-74%) Estimated Nutritional Goals BEE in Kcals: Using Current wt Calories/Kcals/Kg 25-30 Kcals Calculated 5341-2979 Protein: Using Current wt Protein g/k.0-1.2 Protein Calculated 55-66 Fluid: ml 6924-4330 ml (25-30 ml/kg) Nutritional Problem No current Nutrition Prob Problem No nutrition diagnosis at this time. Etiology N/A Signs/Symptoms: N/A Malnutrition Related to Morbid Obesity Malnutrition related to morbid obesity No Intervention/Recommendation Comments 1.Continue with NA2GM diet as ordered. Expected Outcomes/Goals Expected Outcomes/Goals 1.PO intake to continue to meet >75% of nutritional needs . 2.Monitor PO intake, wt, nutrition related labs, and skin integrity. 3.F/U as low risk in 7-10 days , 02/24-02/27
[2019-02-22] MEDS: Verapamil HCl SR 120 mg Tab PO SCH (09:00)
--- NOTE | 2019-02-22 16:44 | Internal Medicine Prog Note ---
Internal Medicine Subjective - Subjective Service Date: 02/22/19 Patient seen and examined:: with staff Patient is:: awake, verbal, agitated, confused Patient Complaints of:: other (Patient is forgetful.) Per staff patient has:: no adverse event, no episodes of fall Internal Medicine Objective - Physical Exam Vitals and I&O: Vital Signs Temp 99.0 F 02/22/19 14:00 Pulse 74 02/22/19 14:00 Resp 18 02/22/19 14:00 BP 105/54 02/22/19 14:00 Pulse Ox 96 02/22/19 14:00 Intake & Output 02/21/19 02/22/19 02/22/19 18:59 06:59 18:59 Intake Total 800 180 Balance 800 180 Intake: Oral 800 180 Other: # Voids 3 3 # Bowel Movements 1 0 Active Medications: Current Medications Acetaminophen (Tylenol) 650 mg PO Q4HR PRN PRN Reason: Mild Pain / Temp above 100 Stop: 04/14/19 21:58 Fluoxetine HCl (Prozac) 10 mg PO DAILY [facility]; Protocol Stop: 04/18/19 08:59 Last Admin: 02/22/19 09:10 Dose: 10 mg Lorazepam (Ativan) 0.5 mg PO Q4HR PRN; Protocol PRN Reason: Agitation Stop: 03/15/19 21:58 Last Admin: 02/22/19 09:10 Dose: 0.5 mg Magnesium Hydroxide (Milk Of Magnesia) 30 ml PO HS PRN PRN Reason: Constipation Memantine (Namenda) 10 mg PO BID [facility] Stop: 04/15/19 08:59 Last Admin: 02/22/19 16:18 Dose: 10 mg Quetiapine Fumarate (Seroquel) 37.5 mg PO BID [facility]; Protocol Stop: 04/22/19 08:59 Last Admin: 02/22/19 16:17 Dose: 37.5 mg Quetiapine Fumarate (Seroquel) 50 mg PO HS [facility]; Protocol Stop: 04/22/19 20:59 Last Admin: 02/21/19 20:17 Dose: 50 mg Verapamil HCl (Calan Sr) 240 mg PO DAILY [facility] Stop: 04/15/19 08:59 Last Admin: 02/22/19 09:00 Dose: Not Given Zolpidem Tartrate (Ambien) 5 mg PO HS PRN PRN Reason: Insomnia Stop: 04/14/19 21:58 Last Admin: 02/21/19 20:17 Dose: 5 mg Physical Exam: Patient is agitated, remains confused, withdrawn, still paranoid regarding room mate, needs monitoring. General: demented HEENT: NC/AT, PERRLA Neck: Supple Lungs: CTAB Cardiovascular: RRR, Normal S1 Abdomen: soft, non-tender Extremities: clear Neurological: no change Internal Medicine Assmt/Plan - Assessment Assessment: Agitation. Aggressive behavior. History of Psychosis. History of Dementia. Paranoid. - Plan Plan: Continuation of care. Monitor Vitals and Labs. Continue present meds as directed. Monitor Diet/Nutritional support. Safety precaution. Supportive care. Continue collaborating with consulting specialists, case management and nursing team. Will Monitor patient and continue present care management. Nutritional Asmnt/Malnutr-PDOC - Dietary Evaluation Malnutrition Findings (Please click <Entered> for more info): Nutritional Asmnt/Malnutrition Start: 02/17/19 15: 36 Text: Status: Complete Freq: Protocol: Document 02/17/19 15:36 CELESTINO (Rec: 02/17/19 15:39 CELESTINO [email or web address]) Nutritional Asmnt/Malnutrition Patient General Information Nutritional Screening Moderate Risk Diagnosis Alzheimers disease Pertinent Medical Hx/Surgical Hx Dementia, Psychosis Subjective Information Pt is a 78-year-old female admitted on 02/13 c/o agitation and aggressive behavior. Per Meal/Nutrition Activity Record , Pt PO intake 50-75-75% meals on 02/15. Per CHRISTIE Mark, Pt ate 50-75% breakfast and lunch today. HT: 58 WT: 122 LB (55.45 kg) BMI: 18.55 (Normal) GI: WNL, Soft, Flat, Non- Tender BM: 02/16 x1 I/O: 240/Not Noted Skin: WNL, Intact Kalen: 21 Diet Order: NA2GM Estimated Energy Needs: ( Geriatric, CBW) 7495-9494 kcals (25-30 kcals/ kg) 55-66g Pro (1.0-1.2 g/kg) 0283-4007 ml (25-30 ml/kg) Pt is eating 65% of meals ( average) Per Meal/Nutrition Activity Record. Dietary is currently providing an estimated 2476 kcals and 110 gm Pro, per Pt PO intake this is providing an estimated 1609 kcals and 71gm Pro to meet 100% kcal and 100% Pro needs- adequate. Current Diet Order/ Nutrition Support NA2GM Pertinent Medications MOM (PRN) Pertinent Labs No Pertinent labs noted Nutritional Hx/Data Height 1.73 m Height (Calculated Centimeters) 172.7 Current Weight (lbs) 55.338 kg Weight (Calculated Kilograms) 55.3 Weight (Calculated Grams) 98290.3 [place] Body Weight 63.9 kg % [place] Body Weight 87 Body Mass Index (BMI) 18.5 Weight Status Approriate GI Symptoms GI Symptoms None Last BM 02/16 x1 Skin Integrity/Comment: Skin: WNL, Intact Kalen: 21 Current %PO Fair (50-74%) Estimated Nutritional Goals BEE in Kcals: Using Current wt Calories/Kcals/Kg 25-30 Kcals Calculated 8541-7922 Protein: Using Current wt Protein g/k.0-1.2 Protein Calculated 55-66 Fluid: ml 6699-3298 ml (25-30 ml/kg) Nutritional Problem No current Nutrition Prob Problem No nutrition diagnosis at this time. Etiology N/A Signs/Symptoms: N/A Malnutrition Related to Morbid Obesity Malnutrition related to morbid obesity No Intervention/Recommendation Comments 1.Continue with NA2GM diet as ordered. Expected Outcomes/Goals Expected Outcomes/Goals 1.PO intake to continue to meet >75% of nutritional needs . 2.Monitor PO intake, wt, nutrition related labs, and skin integrity. 3.F/U as low risk in 7-10 days , 02/24-02/27
--- NOTE | 2019-02-22 21:58 | Progress Notes ---
DATE: 02/22/2019 SUBJECTIVE: A 78-year-old female, currently in the hospital, agitation, aggressive behaviors toward , difficulty with redirection, confused. On [id number], the patient does not know where she is or what is going on. She does not know the year, the month. She states she lives with her , mostly withdrawn, keeps to self, concerns about poor impulse control. Per Dr. Sharma yesterday, she was confused, restless, pacing and agitation. Medications have been adjusted. MEDICATIONS: Reviewed. ASSESSMENT: The patient is confused, still symptomatic, safety concerns. PLAN: We will continue to monitor. JOB# [id number]
[2019-02-23] MEDS: Verapamil HCl SR 120 mg Tab PO SCH (08:21)
--- NOTE | 2019-02-23 13:38 | Internal Medicine Prog Note ---
Internal Medicine Subjective - Subjective Service Date: 02/23/19 Patient is:: awake, verbal, agitated, confused Patient Complaints of:: other (Patient is forgetful.) Per staff patient has:: no adverse event, no episodes of fall Internal Medicine Objective - Physical Exam Vitals and I&O: Vital Signs Temp 97.8 F 02/23/19 06:26 Pulse 85 02/23/19 08:21 Resp 14 02/23/19 08:00 BP 109/68 02/23/19 08:21 Pulse Ox 97 02/23/19 06:26 Intake & Output 02/22/19 02/23/19 02/23/19 18:59 06:59 18:59 Intake Total 1080 120 Balance 1080 120 Intake: Oral 1080 120 Other: # Voids 3 3 # Bowel Movements 0 Active Medications: Current Medications Acetaminophen (Tylenol) 650 mg PO Q4HR PRN PRN Reason: Mild Pain / Temp above 100 Stop: 04/14/19 21:58 Fluoxetine HCl (Prozac) 10 mg PO DAILY JANY; Protocol Stop: 04/18/19 08:59 Last Admin: 02/23/19 08:16 Dose: 10 mg Lorazepam (Ativan) 0.5 mg PO Q4HR PRN; Protocol PRN Reason: Agitation Stop: 03/15/19 21:58 Last Admin: 02/22/19 09:10 Dose: 0.5 mg Magnesium Hydroxide (Milk Of Magnesia) 30 ml PO HS PRN PRN Reason: Constipation Memantine (Namenda) 10 mg PO BID JANY Stop: 04/15/19 08:59 Last Admin: 02/23/19 08:16 Dose: 10 mg Quetiapine Fumarate (Seroquel) 37.5 mg PO BID JANY; Protocol Stop: 04/22/19 08:59 Last Admin: 02/23/19 08:17 Dose: 37.5 mg Quetiapine Fumarate (Seroquel) 50 mg PO HS JANY; Protocol Stop: 04/22/19 20:59 Last Admin: 02/22/19 21:18 Dose: 50 mg Verapamil HCl (Calan Sr) 240 mg PO DAILY JANY Stop: 04/15/19 08:59 Last Admin: 02/23/19 08:21 Dose: Not Given Zolpidem Tartrate (Ambien) 5 mg PO HS PRN PRN Reason: Insomnia Stop: 04/14/19 21:58 Last Admin: 02/22/19 21:26 Dose: 5 mg General: demented HEENT: NC/AT, PERRLA Neck: Supple Lungs: CTAB Cardiovascular: RRR, Normal S1 Abdomen: soft, non-tender Extremities: clear Neurological: no change Internal Medicine Assmt/Plan - Assessment Assessment: Agitation. Aggressive behavior. History of Psychosis. History of Dementia. - Plan Plan: Continuation of care. Monitor Vitals and Labs. Continue present meds as directed. Monitor Diet/Nutritional support. Safety precaution. Supportive care. Continue collaborating with consulting specialists, case management and nursing team. Will Monitor patient and continue present care management. Nutritional Asmnt/Malnutr-PDOC - Dietary Evaluation Malnutrition Findings (Please click <Entered> for more info): Nutritional Asmnt/Malnutrition Start: 02/17/19 15: 36 Text: Status: Complete Freq: Protocol: Document 02/17/19 15:36 CELESTINO (Rec: 02/17/19 15:39 CELESTINO [email or web address]) Nutritional Asmnt/Malnutrition Patient General Information Nutritional Screening Moderate Risk Diagnosis Alzheimers disease Pertinent Medical Hx/Surgical Hx Dementia, Psychosis Subjective Information Pt is a 78-year-old female admitted on 02/13 c/o agitation and aggressive behavior. Per Meal/Nutrition Activity Record , Pt PO intake 50-75-75% meals on 02/15. Per CHRISTIE Mark, Pt ate 50-75% breakfast and lunch today. HT: 58 WT: 122 LB (55.45 kg) BMI: 18.55 (Normal) GI: WNL, Soft, Flat, Non- Tender BM: 02/16 x1 I/O: 240/Not Noted Skin: WNL, Intact Kalen: 21 Diet Order: NA2GM Estimated Energy Needs: ( Geriatric, CBW) 7021-4789 kcals (25-30 kcals/ kg) 55-66g Pro (1.0-1.2 g/kg) 6515-2729 ml (25-30 ml/kg) Pt is eating 65% of meals ( average) Per Meal/Nutrition Activity Record. Dietary is currently providing an estimated 2476 kcals and 110 gm Pro, per Pt PO intake this is providing an estimated 1609 kcals and 71gm Pro to meet 100% kcal and 100% Pro needs- adequate. Current Diet Order/ Nutrition Support NA2GM Pertinent Medications MOM (PRN) Pertinent Labs No Pertinent labs noted Nutritional Hx/Data Height 5 ft 8 in Height (Calculated Centimeters) 172.7 Current Weight (lbs) 122 lb Weight (Calculated Kilograms) 55.3 Weight (Calculated Grams) 27621.3 [place] Body Weight 63.9 kg % [place] Body Weight 87 Body Mass Index (BMI) 18.5 Weight Status Approriate GI Symptoms GI Symptoms None Last BM 02/16 x1 Skin Integrity/Comment: Skin: WNL, Intact Kalen: 21 Current %PO Fair (50-74%) Estimated Nutritional Goals BEE in Kcals: Using Current wt Calories/Kcals/Kg 25-30 Kcals Calculated 9698-0005 Protein: Using Current wt Protein g/k.0-1.2 Protein Calculated 55-66 Fluid: ml 3845-8964 ml (25-30 ml/kg) Nutritional Problem No current Nutrition Prob Problem No nutrition diagnosis at this time. Etiology N/A Signs/Symptoms: N/A Malnutrition Related to Morbid Obesity Malnutrition related to morbid obesity No Intervention/Recommendation Comments 1.Continue with NA2GM diet as ordered. Expected Outcomes/Goals Expected Outcomes/Goals 1.PO intake to continue to meet >75% of nutritional needs . 2.Monitor PO intake, wt, nutrition related labs, and skin integrity. 3.F/U as low risk in 7-10 days , 02/24-02/27
--- NOTE | 2019-02-23 22:09 | Progress Notes ---
DATE: 02/23/2019 SUBJECTIVE: The patient is currently in the hospital really upset "down in the dumps," extremely depressed, not taking care of herself, putting soiled linens just on the ground. is coming around. She is going to go to a [facility]p. really cannot take care of at home. Her needs are too high. Ongoing and severe depressive state, mood state, forgetful, wandering, really melancholic, still unstable. PLAN: We will continue to monitor ongoing and severe depressive symptoms. I will be increasing her dosing of Prozac. JOB# [id number]
[2019-02-24] MEDS: Verapamil HCl SR 120 mg Tab PO SCH (08:38)
--- NOTE | 2019-02-24 10:18 | Internal Medicine Prog Note ---
Internal Medicine Subjective - Subjective Service Date: 02/24/19 Patient seen and examined:: with staff Patient is:: awake, verbal, agitated, confused Patient Complaints of:: other (Patient is forgetful.) Per staff patient has:: no adverse event, no episodes of fall Internal Medicine Objective - Physical Exam Vitals and I&O: Vital Signs Temp 98.3 F 02/24/19 06:26 Pulse 90 02/24/19 08:38 Resp 18 02/24/19 06:26 BP 149/70 02/24/19 08:38 Pulse Ox 97 02/24/19 06:26 Intake & Output 02/23/19 02/24/19 02/24/19 18:59 06:59 18:59 Intake Total 120 Balance 120 Intake: Oral 120 Other: # Voids 3 Active Medications: Current Medications Acetaminophen (Tylenol) 650 mg PO Q4HR PRN PRN Reason: Mild Pain / Temp above 100 Stop: 04/14/19 21:58 Fluoxetine HCl (Prozac) 20 mg PO DAILY JANY; Protocol Stop: 04/25/19 08:59 Last Admin: 02/24/19 08:39 Dose: 20 mg Lorazepam (Ativan) 0.5 mg PO Q4HR PRN; Protocol PRN Reason: Agitation Stop: 03/15/19 21:58 Last Admin: 02/22/19 09:10 Dose: 0.5 mg Magnesium Hydroxide (Milk Of Magnesia) 30 ml PO HS PRN PRN Reason: Constipation Memantine (Namenda) 10 mg PO BID JANY Stop: 04/15/19 08:59 Last Admin: 02/24/19 08:39 Dose: 10 mg Quetiapine Fumarate (Seroquel) 37.5 mg PO BID JANY; Protocol Stop: 04/22/19 08:59 Last Admin: 02/24/19 08:38 Dose: 37.5 mg Quetiapine Fumarate (Seroquel) 50 mg PO HS JANY; Protocol Stop: 04/22/19 20:59 Last Admin: 02/23/19 21:10 Dose: 50 mg Verapamil HCl (Calan Sr) 240 mg PO DAILY JANY Stop: 04/15/19 08:59 Last Admin: 02/24/19 08:38 Dose: 240 mg Zolpidem Tartrate (Ambien) 5 mg PO HS PRN PRN Reason: Insomnia Stop: 04/14/19 21:58 Last Admin: 02/22/19 21:26 Dose: 5 mg Physical Exam: Patient is dis-oriented, still easily agitated, remains withdrawn, very paranoid regarding room mate, continue monitoring. General: demented HEENT: NC/AT, PERRLA Neck: Supple Lungs: CTAB Cardiovascular: RRR, Normal S1 Abdomen: soft, non-tender Extremities: clear Neurological: no change Internal Medicine Assmt/Plan - Assessment Assessment: Agitation. Aggressive behavior. History of Psychosis. History of Dementia. Very Paranoid. - Plan Plan: Continuation of care. Monitor Vitals and Labs. Continue present meds as directed. Monitor Diet/Nutritional support. Safety precaution. Supportive care. Continue collaborating with consulting specialists, case management and nursing team. Will Monitor patient and continue present care management. Nutritional Asmnt/Malnutr-PDOC - Dietary Evaluation Malnutrition Findings (Please click <Entered> for more info): Nutritional Asmnt/Malnutrition Start: 02/17/19 15: 36 Text: Status: Complete Freq: Protocol: Document 02/17/19 15:36 CELESTINO (Rec: 02/17/19 15:39 CELESTINO [email or web address]) Nutritional Asmnt/Malnutrition Patient General Information Nutritional Screening Moderate Risk Diagnosis Alzheimers disease Pertinent Medical Hx/Surgical Hx Dementia, Psychosis Subjective Information Pt is a 78-year-old female admitted on 02/13 c/o agitation and aggressive behavior. Per Meal/Nutrition Activity Record , Pt PO intake 50-75-75% meals on 02/15. Per INSULATION PACKERChad Mark, Pt ate 50-75% breakfast and lunch today. HT: 58 WT: 122 LB (55.45 kg) BMI: 18.55 (Normal) GI: WNL, Soft, Flat, Non- Tender BM: 02/16 x1 I/O: 240/Not Noted Skin: WNL, Intact Kalen: 21 Diet Order: NA2GM Estimated Energy Needs: ( Geriatric, CBW) 9471-1150 kcals (25-30 kcals/ kg) 55-66g Pro (1.0-1.2 g/kg) 2701-8880 ml (25-30 ml/kg) Pt is eating 65% of meals ( average) Per Meal/Nutrition Activity Record. Dietary is currently providing an estimated 2476 kcals and 110 gm Pro, per Pt PO intake this is providing an estimated 1609 kcals and 71gm Pro to meet 100% kcal and 100% Pro needs- adequate. Current Diet Order/ Nutrition Support NA2GM Pertinent Medications MOM (PRN) Pertinent Labs No Pertinent labs noted Nutritional Hx/Data Height 1.73 m Height (Calculated Centimeters) 172.7 Current Weight (lbs) 55.338 kg Weight (Calculated Kilograms) 55.3 Weight (Calculated Grams) 95976.3 [place] Body Weight 63.9 kg % [place] Body Weight 87 Body Mass Index (BMI) 18.5 Weight Status Approriate GI Symptoms GI Symptoms None Last BM 02/16 x1 Skin Integrity/Comment: Skin: WNL, Intact Kalen: 21 Current %PO Fair (50-74%) Estimated Nutritional Goals BEE in Kcals: Using Current wt Calories/Kcals/Kg 25-30 Kcals Calculated 0807-2664 Protein: Using Current wt Protein g/k.0-1.2 Protein Calculated 55-66 Fluid: ml 7364-2288 ml (25-30 ml/kg) Nutritional Problem No current Nutrition Prob Problem No nutrition diagnosis at this time. Etiology N/A Signs/Symptoms: N/A Malnutrition Related to Morbid Obesity Malnutrition related to morbid obesity No Intervention/Recommendation Comments 1.Continue with NA2GM diet as ordered. Expected Outcomes/Goals Expected Outcomes/Goals 1.PO intake to continue to meet >75% of nutritional needs . 2.Monitor PO intake, wt, nutrition related labs, and skin integrity. 3.F/U as low risk in 7-10 days , 02/24-02/27
--- NOTE | 2019-02-24 17:24 | Progress Notes ---
DATE: 02/24/2019 SUBJECTIVE: The patient remains confused, disoriented, does not know where she is going to go when she leaves here, withdrawn, quiet, still very depressed, still with some crying episodes. The patient believing that her is coming to pick her up today. The patient making some nonsensical statements, still very depressed, attesting to depression, sadness" down in the dumps", ongoing and severe mood symptoms. We will continue to monitor. Currently on dosing of Seroquel and Prozac. Recent dose, increase of Prozac. JOB# [id number]
[2019-02-25] MEDS: Verapamil HCl SR 120 mg Tab PO SCH (08:31)
--- NOTE | 2019-02-25 13:02 | Internal Medicine Prog Note ---
Internal Medicine Subjective - Subjective Service Date: 02/25/19 Patient seen and examined:: with staff Patient is:: awake, verbal, agitated, confused Patient Complaints of:: other (Patient is forgetful.) Per staff patient has:: no adverse event, no episodes of fall Internal Medicine Objective - Physical Exam Vitals and I&O: Vital Signs Temp 96.9 F 02/25/19 06:20 Pulse 81 02/25/19 08:31 Resp 20 02/25/19 06:20 BP 113/65 02/25/19 08:31 Pulse Ox 97 02/25/19 06:20 Intake & Output 02/24/19 02/25/19 02/25/19 18:59 06:59 18:59 Intake Total 1200 Balance 1200 Intake: Oral 1200 Other: # Voids 2 Active Medications: Current Medications Acetaminophen (Tylenol) 650 mg PO Q4HR PRN PRN Reason: Mild Pain / Temp above 100 Stop: 04/14/19 21:58 Fluoxetine HCl (Prozac) 20 mg PO DAILY JANY; Protocol Stop: 04/25/19 08:59 Last Admin: 02/25/19 08:30 Dose: 20 mg Lorazepam (Ativan) 0.5 mg PO Q4HR PRN; Protocol PRN Reason: Agitation Stop: 03/15/19 21:58 Last Admin: 02/22/19 09:10 Dose: 0.5 mg Magnesium Hydroxide (Milk Of Magnesia) 30 ml PO HS PRN PRN Reason: Constipation Memantine (Namenda) 10 mg PO BID JANY Stop: 04/15/19 08:59 Last Admin: 02/25/19 08:29 Dose: 10 mg Quetiapine Fumarate (Seroquel) 37.5 mg PO BID JANY; Protocol Stop: 04/22/19 08:59 Last Admin: 02/25/19 08:30 Dose: 37.5 mg Quetiapine Fumarate (Seroquel) 50 mg PO HS JANY; Protocol Stop: 04/22/19 20:59 Last Admin: 02/24/19 21:12 Dose: 50 mg Verapamil HCl (Calan Sr) 240 mg PO DAILY JANY Stop: 04/15/19 08:59 Last Admin: 02/25/19 08:31 Dose: 240 mg Zolpidem Tartrate (Ambien) 5 mg PO HS PRN PRN Reason: Insomnia Stop: 04/14/19 21:58 Last Admin: 02/22/19 21:26 Dose: 5 mg Physical Exam: Patient is still paranoid and easily agitated, continue monitoring. General: demented HEENT: NC/AT, PERRLA Neck: Supple Lungs: CTAB Cardiovascular: RRR, Normal S1 Abdomen: soft, non-tender Extremities: clear Neurological: no change Internal Medicine Assmt/Plan - Assessment Assessment: Agitation. Aggressive behavior. History of Psychosis. History of Dementia. Very Paranoid. - Plan Plan: Continuation of care. Monitor Vitals and Labs. Continue present meds as directed. Monitor Diet/Nutritional support. Safety precaution. Supportive care. Continue collaborating with consulting specialists, case management and nursing team. Will Monitor patient and continue present care management. Nutritional Asmnt/Malnutr-PDOC - Dietary Evaluation Malnutrition Findings (Please click <Entered> for more info): Nutritional Asmnt/Malnutrition Start: 02/17/19 15: 36 Text: Status: Complete Freq: Protocol: Document 02/17/19 15:36 CELESTINO (Rec: 02/17/19 15:39 CELESTINO [email or web address]) Nutritional Asmnt/Malnutrition Patient General Information Nutritional Screening Moderate Risk Diagnosis Alzheimers disease Pertinent Medical Hx/Surgical Hx Dementia, Psychosis Subjective Information Pt is a 78-year-old female admitted on 02/13 c/o agitation and aggressive behavior. Per Meal/Nutrition Activity Record , Pt PO intake 50-75-75% meals on 02/15. Per REVIEW COORDINATORChad Mark, Pt ate 50-75% breakfast and lunch today. HT: 58 WT: 122 LB (55.45 kg) BMI: 18.55 (Normal) GI: WNL, Soft, Flat, Non- Tender BM: 02/16 x1 I/O: 240/Not Noted Skin: WNL, Intact Kalen: 21 Diet Order: NA2GM Estimated Energy Needs: ( Geriatric, CBW) 1209-7673 kcals (25-30 kcals/ kg) 55-66g Pro (1.0-1.2 g/kg) 3230-5860 ml (25-30 ml/kg) Pt is eating 65% of meals ( average) Per Meal/Nutrition Activity Record. Dietary is currently providing an estimated 2476 kcals and 110 gm Pro, per Pt PO intake this is providing an estimated 1609 kcals and 71gm Pro to meet 100% kcal and 100% Pro needs- adequate. Current Diet Order/ Nutrition Support NA2GM Pertinent Medications MOM (PRN) Pertinent Labs No Pertinent labs noted Nutritional Hx/Data Height 1.73 m Height (Calculated Centimeters) 172.7 Current Weight (lbs) 55.338 kg Weight (Calculated Kilograms) 55.3 Weight (Calculated Grams) 80799.3 [place] Body Weight 63.9 kg % [place] Body Weight 87 Body Mass Index (BMI) 18.5 Weight Status Approriate GI Symptoms GI Symptoms None Last BM 02/16 x1 Skin Integrity/Comment: Skin: WNL, Intact Kalen: 21 Current %PO Fair (50-74%) Estimated Nutritional Goals BEE in Kcals: Using Current wt Calories/Kcals/Kg 25-30 Kcals Calculated 5111-3018 Protein: Using Current wt Protein g/k.0-1.2 Protein Calculated 55-66 Fluid: ml 0454-0352 ml (25-30 ml/kg) Nutritional Problem No current Nutrition Prob Problem No nutrition diagnosis at this time. Etiology N/A Signs/Symptoms: N/A Malnutrition Related to Morbid Obesity Malnutrition related to morbid obesity No Intervention/Recommendation Comments 1.Continue with NA2GM diet as ordered. Expected Outcomes/Goals Expected Outcomes/Goals 1.PO intake to continue to meet >75% of nutritional needs . 2.Monitor PO intake, wt, nutrition related labs, and skin integrity. 3.F/U as low risk in 7-10 days , 02/24-02/27
--- NOTE | 2019-02-26 04:44 | Progress Notes ---
DATE: 02/25/[address] Sharma. IDENTIFYING DATA: A 78-year-old female brought in here from [facility] with agitation and aggressive behavior towards her . She has a history of dementia. MEDICATIONS: Current medication reconciliation reviewed. Currently on Prozac 20 mg, Ativan as needed, Seroquel, and Namenda. Overnight covering physician and nursing staff reported that the patient continued withdrawn and depressed. Today on [id number] evaluation, the patient reports that she is sad and had tearful episodes. MENTAL STATUS EXAMINATION: Sadness down in the dumps. ASSESSMENT AND PLAN: Severe depression and dementia. We will continue with the recent increase of the medications to target the patient's depressive symptoms and tearful episodes. JOB# [id number]
[2019-02-26] MEDS: Verapamil HCl SR 120 mg Tab PO SCH (09:30)
--- NOTE | 2019-02-26 09:53 | Internal Medicine Prog Note ---
Internal Medicine Subjective - Subjective Patient is:: awake, verbal, interactive, confused Patient Complaints of:: other (Patient is forgetful.) Per staff patient has:: no adverse event, no episodes of fall Internal Medicine Objective - Physical Exam Vitals and I&O: Vital Signs Temp 98.1 F 02/26/19 05:41 Pulse 76 02/26/19 05:41 Resp 18 02/26/19 05:41 BP 126/70 02/26/19 05:41 Pulse Ox 95 02/26/19 05:41 Intake & Output 02/25/19 02/26/19 02/26/19 18:59 06:59 18:59 Intake Total 1200 480 Balance 1200 480 Intake: Oral 1200 480 Other: # Voids 1 # Bowel Movements 1 Active Medications: Current Medications Acetaminophen (Tylenol) 650 mg PO Q4HR PRN PRN Reason: Mild Pain / Temp above 100 Stop: 04/14/19 21:58 Fluoxetine HCl (Prozac) 20 mg PO DAILY [facility]; Protocol Stop: 04/25/19 08:59 Last Admin: 02/26/19 09:24 Dose: 20 mg Lorazepam (Ativan) 0.5 mg PO Q4HR PRN; Protocol PRN Reason: Agitation Stop: 03/15/19 21:58 Last Admin: 02/22/19 09:10 Dose: 0.5 mg Magnesium Hydroxide (Milk Of Magnesia) 30 ml PO HS PRN PRN Reason: Constipation Memantine (Namenda) 10 mg PO BID JANY Stop: 04/15/19 08:59 Last Admin: 02/26/19 09:23 Dose: 10 mg Quetiapine Fumarate (Seroquel) 37.5 mg PO BID JANY; Protocol Stop: 04/22/19 08:59 Last Admin: 02/26/19 09:23 Dose: 37.5 mg Quetiapine Fumarate (Seroquel) 50 mg PO HS AJNY; Protocol Stop: 04/22/19 20:59 Last Admin: 02/25/19 20:16 Dose: 50 mg Verapamil HCl (Calan Sr) 240 mg PO DAILY JANY Stop: 04/15/19 08:59 Last Admin: 02/25/19 08:31 Dose: 240 mg Zolpidem Tartrate (Ambien) 5 mg PO HS PRN PRN Reason: Insomnia Stop: 04/14/19 21:58 Last Admin: 02/22/19 21:26 Dose: 5 mg General: demented, NAD HEENT: NC/AT, PERRLA Neck: Supple, No JVD Lungs: CTAB Cardiovascular: RRR Abdomen: soft, non-tender Extremities: clear Neurological: no change Internal Medicine Assmt/Plan - Assessment Assessment: Agitation. Aggressive behavior. History of Psychosis. History of Dementia. - Plan Plan: Continue current treatment plan. Monitor Labs. Continue current medications Continue to monitor VS Monitor Diet/Nutritional support. Psych management per Psychiatry. Pain Management. PT/OT prnSafety precaution, Fall precaution, frequent nursing round. Supportive care. Continue collaborating with consulting specialists, case management and nursing team. Nutritional Asmnt/Malnutr-PDOC - Dietary Evaluation Malnutrition Findings (Please click <Entered> for more info): Nutritional Asmnt/Malnutrition Start: 02/17/19 15: 36 Text: Status: Complete Freq: Protocol: Document 02/17/19 15:36 CELESTINO (Rec: 02/17/19 15:39 CELESTINO [email or web address]) Nutritional Asmnt/Malnutrition Patient General Information Nutritional Screening Moderate Risk Diagnosis Alzheimers disease Pertinent Medical Hx/Surgical Hx Dementia, Psychosis Subjective Information Pt is a 78-year-old female admitted on 02/13 c/o agitation and aggressive behavior. Per Meal/Nutrition Activity Record , Pt PO intake 50-75-75% meals on 02/15. Per CHRISTIE Mark, Pt ate 50-75% breakfast and lunch today. HT: 58 WT: 122 LB (55.45 kg) BMI: 18.55 (Normal) GI: WNL, Soft, Flat, Non- Tender BM: 02/16 x1 I/O: 240/Not Noted Skin: WNL, Intact Kalen: 21 Diet Order: NA2GM Estimated Energy Needs: ( Geriatric, CBW) 6809-0992 kcals (25-30 kcals/ kg) 55-66g Pro (1.0-1.2 g/kg) 7083-1497 ml (25-30 ml/kg) Pt is eating 65% of meals ( average) Per Meal/Nutrition Activity Record. Dietary is currently providing an estimated 2476 kcals and 110 gm Pro, per Pt PO intake this is providing an estimated 1609 kcals and 71gm Pro to meet 100% kcal and 100% Pro needs- adequate. Current Diet Order/ Nutrition Support NA2GM Pertinent Medications MOM (PRN) Pertinent Labs No Pertinent labs noted Nutritional Hx/Data Height 5 ft 8 in Height (Calculated Centimeters) 172.7 Current Weight (lbs) 122 lb Weight (Calculated Kilograms) 55.3 Weight (Calculated Grams) 37295.3 [place] Body Weight 63.9 kg % [place] Body Weight 87 Body Mass Index (BMI) 18.5 Weight Status Approriate GI Symptoms GI Symptoms None Last BM 02/16 x1 Skin Integrity/Comment: Skin: WNL, Intact Kalen: 21 Current %PO Fair (50-74%) Estimated Nutritional Goals BEE in Kcals: Using Current wt Calories/Kcals/Kg 25-30 Kcals Calculated 8383-0344 Protein: Using Current wt Protein g/k.0-1.2 Protein Calculated 55-66 Fluid: ml 0874-1245 ml (25-30 ml/kg) Nutritional Problem No current Nutrition Prob Problem No nutrition diagnosis at this time. Etiology N/A Signs/Symptoms: N/A Malnutrition Related to Morbid Obesity Malnutrition related to morbid obesity No Intervention/Recommendation Comments 1.Continue with NA2GM diet as ordered. Expected Outcomes/Goals Expected Outcomes/Goals 1.PO intake to continue to meet >75% of nutritional needs . 2.Monitor PO intake, wt, nutrition related labs, and skin integrity. 3.F/U as low risk in 7-10 days , 02/24-02/27
--- NOTE | 2019-02-26 19:32 | Progress Notes ---
DATE: 02/26/2019 Today on [id number] evaluation, the patient reports that she is very scared that someone is going harm her, someone is going to scare her. She had needed to change her room. MENTAL STATUS EXAMINATION: Suspicious, irritable. ASSESSMENT AND PLAN: The patient is a 78-year-old female with ongoing suspicious behavior. We will continue with the current addition of the ____ she continues to ____ state. [facility]# [id number]
[2019-02-27] MEDS: Verapamil HCl SR 120 mg Tab PO SCH (08:13)
--- NOTE | 2019-02-27 09:32 | Internal Medicine Prog Note ---
Internal Medicine Subjective - Subjective Service Date: 02/27/19 Patient seen and examined:: with staff Patient is:: awake, verbal, interactive, confused Patient Complaints of:: other (Patient is forgetful.) Per staff patient has:: no adverse event, no episodes of fall Internal Medicine Objective - Physical Exam Vitals and I&O: Vital Signs Temp 97.9 F 02/27/19 05:27 Pulse 70 02/27/19 05:27 Resp 20 02/27/19 05:27 BP 118/58 02/27/19 05:27 Pulse Ox 94 02/27/19 05:27 Intake & Output 02/26/19 02/27/19 02/27/19 18:59 06:59 18:59 Intake Total 900 360 Balance 900 360 Intake: Oral 900 360 Other: # Voids 4 1 # Bowel Movements 1 0 Active Medications: Current Medications Acetaminophen (Tylenol) 650 mg PO Q4HR PRN PRN Reason: Mild Pain / Temp above 100 Stop: 04/14/19 21:58 Fluoxetine HCl (Prozac) 20 mg PO DAILY [facility]; Protocol Stop: 04/25/19 08:59 Last Admin: 02/27/19 08:12 Dose: 20 mg Lorazepam (Ativan) 0.5 mg PO Q4HR PRN; Protocol PRN Reason: Agitation Stop: 03/15/19 21:58 Last Admin: 02/22/19 09:10 Dose: 0.5 mg Magnesium Hydroxide (Milk Of Magnesia) 30 ml PO HS PRN PRN Reason: Constipation Memantine (Namenda) 10 mg PO BID [facility] Stop: 04/15/19 08:59 Last Admin: 02/27/19 08:12 Dose: 10 mg Quetiapine Fumarate (Seroquel) 37.5 mg PO BID [facility]; Protocol Stop: 04/22/19 08:59 Last Admin: 02/27/19 08:12 Dose: 37.5 mg Quetiapine Fumarate (Seroquel) 50 mg PO HS [facility]; Protocol Stop: 04/22/19 20:59 Last Admin: 02/26/19 20:10 Dose: 50 mg Verapamil HCl (Calan Sr) 240 mg PO DAILY [facility] Stop: 04/15/19 08:59 Last Admin: 02/27/19 08:13 Dose: Not Given Zolpidem Tartrate (Ambien) 5 mg PO HS PRN PRN Reason: Insomnia Stop: 04/14/19 21:58 Last Admin: 02/22/19 21:26 Dose: 5 mg Physical Exam: Patient has increased memory loss, very confused and remains paranoid. General: demented, NAD HEENT: NC/AT, PERRLA Neck: Supple, No JVD Lungs: CTAB Cardiovascular: RRR Abdomen: soft, non-tender Extremities: clear Neurological: no change Internal Medicine Assmt/Plan - Assessment Assessment: Agitation. Aggressive behavior. History of Psychosis. History of Dementia. Very Paranoid. - Plan Plan: Continuation of care. Monitor Vitals and Labs. Continue present meds as directed. Monitor Diet/Nutritional support. Safety precaution. Supportive care. Continue collaborating with consulting specialists, case management and nursing team. Will Monitor patient and continue present care management. Nutritional Asmnt/Malnutr-PDOC - Dietary Evaluation Malnutrition Findings (Please click <Entered> for more info): Nutritional Asmnt/Malnutrition Start: 02/17/19 15: 36 Text: Status: Complete Freq: Protocol: Document 02/17/19 15:36 CELESTINO (Rec: 02/17/19 15:39 CELESTINO [id number]) Nutritional Asmnt/Malnutrition Patient General Information Nutritional Screening Moderate Risk Diagnosis Alzheimers disease Pertinent Medical Hx/Surgical Hx Dementia, Psychosis Subjective Information Pt is a 78-year-old female admitted on 02/13 c/o agitation and aggressive behavior. Per Meal/Nutrition Activity Record , Pt PO intake 50-75-75% meals on 02/15. Per TREE DEADENERChad Mark, Pt ate 50-75% breakfast and lunch today. HT: 58 WT: 122 LB (55.45 kg) BMI: 18.55 (Normal) GI: WNL, Soft, Flat, Non- Tender BM: 02/16 x1 I/O: 240/Not Noted Skin: WNL, Intact Kalen: 21 Diet Order: NA2GM Estimated Energy Needs: ( Geriatric, CBW) 4339-9046 kcals (25-30 kcals/ kg) 55-66g Pro (1.0-1.2 g/kg) 6686-1059 ml (25-30 ml/kg) Pt is eating 65% of meals ( average) Per Meal/Nutrition Activity Record. Dietary is currently providing an estimated 2476 kcals and 110 gm Pro, per Pt PO intake this is providing an estimated 1609 kcals and 71gm Pro to meet 100% kcal and 100% Pro needs- adequate. Current Diet Order/ Nutrition Support NA2GM Pertinent Medications MOM (PRN) Pertinent Labs No Pertinent labs noted Nutritional Hx/Data Height 1.73 m Height (Calculated Centimeters) 172.7 Current Weight (lbs) 55.338 kg Weight (Calculated Kilograms) 55.3 Weight (Calculated Grams) 13772.3 [place] Body Weight 63.9 kg % [place] Body Weight 87 Body Mass Index (BMI) 18.5 Weight Status Approriate GI Symptoms GI Symptoms None Last BM 02/16 x1 Skin Integrity/Comment: Skin: WNL, Intact Kalen: 21 Current %PO Fair (50-74%) Estimated Nutritional Goals BEE in Kcals: Using Current wt Calories/Kcals/Kg 25-30 Kcals Calculated 7918-6260 Protein: Using Current wt Protein g/k.0-1.2 Protein Calculated 55-66 Fluid: ml 7815-3782 ml (25-30 ml/kg) Nutritional Problem No current Nutrition Prob Problem No nutrition diagnosis at this time. Etiology N/A Signs/Symptoms: N/A Malnutrition Related to Morbid Obesity Malnutrition related to morbid obesity No Intervention/Recommendation Comments 1.Continue with NA2GM diet as ordered. Expected Outcomes/Goals Expected Outcomes/Goals 1.PO intake to continue to meet >75% of nutritional needs . 2.Monitor PO intake, wt, nutrition related labs, and skin integrity. 3.F/U as low risk in 7-10 days , 02/24-02/27
--- NOTE | 2019-02-27 23:50 | Progress Notes ---
DATE: 02/27/2019 SUBJECTIVE: The patient in the hospital, confused, forgetful, verbally responsive to commands, but not really saying too much, just stating that she is "doing better" and "feeling better". She is pretty confused, believing she is going to go home with , but apparently she may be going to a detention. I need to coordinate with addiction social worker and confirm this. has been coming around. The patient is no longer attesting to any SI, still wandering in the hallways, preoccupied. No longer stating that she is "down in the dumps", making friends on the unit, seems happier, brighter affect. ASSESSMENT: The patient is improving. We will recommend further 24 hours of monitoring with confirmation of placement. JOB# [id number]
[2019-02-28] MEDS: Verapamil HCl SR 120 mg Tab PO SCH (08:44)
--- NOTE | 2019-02-28 16:45 | Internal Medicine Prog Note ---
Internal Medicine Subjective - Subjective Service Date: 02/28/19 Patient is:: awake, verbal, interactive, confused Patient Complaints of:: other (Patient is forgetful.) Per staff patient has:: no adverse event, no episodes of fall Internal Medicine Objective - Physical Exam Vitals and I&O: Vital Signs Temp 98.0 F 02/28/19 14:00 Pulse 56 02/28/19 14:00 Resp 18 02/28/19 14:00 BP 109/66 02/28/19 08:44 Pulse Ox 97 02/28/19 14:00 Intake & Output 02/27/19 02/28/19 02/28/19 18:59 06:59 18:59 Intake Total 800 540 Balance 800 540 Intake: Oral 800 540 Other: # Voids 3 1 # Bowel Movements 0 0 Active Medications: Current Medications Acetaminophen (Tylenol) 650 mg PO Q4HR PRN PRN Reason: Mild Pain / Temp above 100 Stop: 04/14/19 21:58 Fluoxetine HCl (Prozac) 20 mg PO DAILY [facility]; Protocol Stop: 04/25/19 08:59 Last Admin: 02/28/19 08:43 Dose: 20 mg Lorazepam (Ativan) 0.5 mg PO Q4HR PRN; Protocol PRN Reason: Agitation Stop: 03/15/19 21:58 Last Admin: 02/22/19 09:10 Dose: 0.5 mg Magnesium Hydroxide (Milk Of Magnesia) 30 ml PO HS PRN PRN Reason: Constipation Memantine (Namenda) 10 mg PO BID [facility] Stop: 04/15/19 08:59 Last Admin: 02/28/19 08:43 Dose: 10 mg Quetiapine Fumarate (Seroquel) 37.5 mg PO BID [facility]; Protocol Stop: 04/22/19 08:59 Last Admin: 02/28/19 08:44 Dose: 37.5 mg Quetiapine Fumarate (Seroquel) 50 mg PO HS [facility]; Protocol Stop: 04/22/19 20:59 Last Admin: 02/27/19 21:17 Dose: 50 mg Verapamil HCl (Calan Sr) 240 mg PO DAILY [facility] Stop: 04/15/19 08:59 Last Admin: 02/28/19 08:44 Dose: Not Given Zolpidem Tartrate (Ambien) 5 mg PO HS PRN PRN Reason: Insomnia Stop: 04/14/19 21:58 Last Admin: 02/27/19 21:18 Dose: 5 mg General: demented, NAD HEENT: NC/AT, PERRLA Neck: Supple, No JVD Lungs: CTAB Cardiovascular: RRR Abdomen: soft, non-tender Extremities: clear Neurological: no change Internal Medicine Assmt/Plan - Assessment Assessment: Agitation. Aggressive behavior. History of Psychosis. History of Dementia. - Plan Plan: Continuation of care. Monitor Vitals and Labs. Continue present meds as directed. Monitor Diet/Nutritional support. Safety precaution. Supportive care. Continue collaborating with consulting specialists, case management and nursing team. Will Monitor patient and continue present care management. Nutritional Asmnt/Malnutr-PDOC - Dietary Evaluation Malnutrition Findings (Please click <Entered> for more info): Nutritional Asmnt/Malnutrition Start: 02/17/19 15: 36 Text: Status: Complete Freq: Protocol: Document 02/17/19 15:36 CELESTINO (Rec: 02/17/19 15:39 CELESTINO [id number]) Nutritional Asmnt/Malnutrition Patient General Information Nutritional Screening Moderate Risk Diagnosis Alzheimers disease Pertinent Medical Hx/Surgical Hx Dementia, Psychosis Subjective Information Pt is a 78-year-old female admitted on 02/13 c/o agitation and aggressive behavior. Per Meal/Nutrition Activity Record , Pt PO intake 50-75-75% meals on 02/15. Per CHRISTIE Mark, Pt ate 50-75% breakfast and lunch today. HT: 58 WT: 122 LB (55.45 kg) BMI: 18.55 (Normal) GI: WNL, Soft, Flat, Non- Tender BM: 02/16 x1 I/O: 240/Not Noted Skin: WNL, Intact Kalen: 21 Diet Order: NA2GM Estimated Energy Needs: ( Geriatric, CBW) 9960-3077 kcals (25-30 kcals/ kg) 55-66g Pro (1.0-1.2 g/kg) 8443-0178 ml (25-30 ml/kg) Pt is eating 65% of meals ( average) Per Meal/Nutrition Activity Record. Dietary is currently providing an estimated 2476 kcals and 110 gm Pro, per Pt PO intake this is providing an estimated 1609 kcals and 71gm Pro to meet 100% kcal and 100% Pro needs- adequate. Current Diet Order/ Nutrition Support NA2GM Pertinent Medications MOM (PRN) Pertinent Labs No Pertinent labs noted Nutritional Hx/Data Height 5 ft 8 in Height (Calculated Centimeters) 172.7 Current Weight (lbs) 122 lb Weight (Calculated Kilograms) 55.3 Weight (Calculated Grams) 16121.3 [place] Body Weight 63.9 kg % [place] Body Weight 87 Body Mass Index (BMI) 18.5 Weight Status Approriate GI Symptoms GI Symptoms None Last BM 02/16 x1 Skin Integrity/Comment: Skin: WNL, Intact Kal[place]: 21 Current %PO Fair (50-74%) Estimated Nutritional Goals BEE in Kcals: Using Current wt Calories/Kcals/Kg 25-30 Kcals Calculated 0943-5771 Protein: Using Current wt Protein g/k.0-1.2 Protein Calculated 55-66 Fluid: ml 3812-0027 ml (25-30 ml/kg) Nutritional Problem No current Nutrition Prob Problem No nutrition diagnosis at this time. Etiology N/A Signs/Symptoms: N/A Malnutrition Related to Morbid Obesity Malnutrition related to morbid obesity No Intervention/Recommendation Comments 1.Continue with NA2GM diet as ordered. Expected Outcomes/Goals Expected Outcomes/Goals 1.PO intake to continue to meet >75% of nutritional needs . 2.Monitor PO intake, wt, nutrition related labs, and skin integrity. 3.F/U as low risk in 7-10 days , 02/24-02/27
--- NOTE | 2019-03-01 00:10 | Discharge Summary ---
DATE OF DISCHARGE: 02/28/2019 AGE: 78. SEX: Female. PHYSICIAN: John Sharma M.D. FINAL DIAGNOSIS AND PRIMARY DIAGNOSIS: Unspecified psychosis. SECONDARY DIAGNOSIS: Dementia, moderate to severe, with psychotic features. REASON FOR HOSPITALIZATION: The patient was admitted to the hospital because of increased confusion and because of aggressive behavior towards her and the patient was out of control. HOSPITAL COURSE: The patient continued to be confused and agitated. The patient also was restless and continued to pace the unit, looking for her . She also needed lots of redirections with difficulty following directions. The patient was started on Seroquel and the dose adjusted to 37.5 mg twice a day and 50 mg at bedtime. The patient became slightly calm and less irritable and less agitated. She also continued to take Prozac and Namenda. The patient's was able to take care of the patient and the patient was placed on [facility] with her 's choice. PHYSICAL EXAMINATION: The patient showed no major medical problems while in the hospital and the patient's hypertension was monitored closely and also hip pain was monitored closely. AFTER DISCHARGE PLANS: The patient discharged from the hospital, went to [facility] with plans to be followed there. EXPECTED OUTCOME AFTER DISCHARGE: Fair, if the patient continues to follow up with her discharge plans and placement issues. [facility]# [id number]
== END 2019-02-28 18:49 | DRG 885 ==
LOC: GERO 20:39
PROVIDERS: ADMIT Psychiatry & Neurology Psychiatry; ATTEND Psychiatry & Neurology Psychiatry
DX: F29 Unspecified psychosis not due to a substance or known physiological condition (principal); F03.91 Unspecified dementia, unspecified severity, with behavioral disturbance; I10 Essential (primary) hypertension
CPT/HCPCS: 83036-90; G0410; Z7610